=== PATIENT | female | born 1995 | race Caucasian/White ===

== ENCOUNTER 2016-12-27 23:43 | Emergency (ER) | payer OTHER ==
[~2016-12-27] VITALS: Ht 162.6 cm; Wt 56.2 kg
[~2016-12-27 23:43] MED LIST: ACYCLOVIR400 MG PO; AMOXICILLIN500 MG PO; AUGMENTIN875TAB PO; CLARITIN10 M1 PO; DIFLUCAN150 MG PO; FLAGYL500 MG OR; IBUPROFEN400 MG OR; IBUPROFEN600 MG PO; MOTRIN800 MG/TAB PO; NAPROSYN500 MG OR; PREVACID30 M3 PO; PRILOSEC40 MG PO; SPRINTEC 2828 DAY PO; TESSALON PER100 MG PO; TYLENOL # 31 TAB OR; ULTRAM50 M1 PO; VALIUM2 MG OR; ZITHROMAX250 MG PO; tylenol#3 OR
[2016-12-27] MEDS ORDERED: RANITIDINE150 MG PO (23:52)
[2016-12-28] MEDS ORDERED: FLEXERIL PO (01:15)
[2016-12-28] MEDS ORDERED: NAPROSYN500 MG PO (01:15)
[2016-12-28 01:40] VITALS: BP 129/83
== END 2016-12-28 01:45 | disposition home or self-care (01) | DRG 552 ==
LOC: ED 23:43
DX: S16.1XXA Strain of muscle, fascia and tendon at neck level, initial encounter (principal); M54.5 Low back pain; V44.5XXA Car driver injured in collision with heavy transport vehicle or bus in traffic accident, initial encounter; Y92.413 State road as the place of occurrence of the external cause

== ENCOUNTER 2019-03-07 16:39 | Emergency (ER) | payer OTHER ==
[~2019-03-07] VITALS: Ht 162.6 cm; Wt 60.5 kg
[~2019-03-07 16:39] MED LIST changes: +FLEXERIL PO; +NAPROSYN500 MG PO; +RANITIDINE150 MG PO
[2019-03-07] MEDS ORDERED: AMOXICILLIN875 MG PO (17:04)
[2019-03-07 17:10] VITALS: BP 118/77
== END 2019-03-07 17:10 | disposition home or self-care (01) | DRG 153 ==
LOC: ED 16:39
DX: J02.9 Acute pharyngitis, unspecified (principal); F17.210 Nicotine dependence, cigarettes, uncomplicated

== ENCOUNTER 2019-03-30 10:38 | Emergency (ER) | payer OTHER ==
[~2019-03-30] VITALS: Ht 162.6 cm; Wt 60.0 kg
[~2019-03-30 10:38] MED LIST changes: +AMOXICILLIN875 MG PO
[2019-03-30 11:35] LABS: URINE BILIRUBIN - DIPSTICK NEGATIVE (NEGATIVE); URINE BLOOD DIPSTICK NEGATIVE (NEGATIVE); URINE COLOR YELLOW; URINE GLUCOSE - DIPSTICK NEGATIVE (NEGATIVE); URINE KETONE NEGATIVE (NEGATIVE); URINE LEUK ESTERASE NEGATIVE (Negative); URINE NITRITE - DIPSTICK NEGATIVE (Negative); URINE PROTEIN - DIPSTICK NEGATIVE (NEG-TRACE); URINE SPECIFIC GRAVITY <=1.005; URINE UROBILINOGEN - DIPSTICK 0.2 E.U./dL (0.2)
[2019-03-30 11:37] LABS: HEMOGLOBIN 13.9 g/dl (12.0-16.0); IMMATURE GRANULOCYTES 0.5 % (0.0-5.0); MEAN CELL VOLUME 91.7 fL CALC (80.0-100.0); MEAN CORPUSCULAR HGB 31.1 pG CALC (26.0-32.0); MEAN CORPUSCULAR HGB CONC 33.9 g/L CALC (32.0-36.0); NEUT# 2.93 thou/uL (2.00-7.15); RED BLOOD COUNT 4.47 mill/uL (4.20-5.60); URINE CLARITY CLEAR
[2019-03-30 11:42] LABS: BARBITURATES NEGATIVE (NEGATIVE); COCAINE NEGATIVE (NEGATIVE); METHADONE NEGATIVE (NEGATIVE); OXCYCODONE NEGATIVE (NEGATIVE); TETRAHYDROCANNABIONOL NEGATIVE (NEGATIVE); TRICYLIC ANTIDEPRESSANTS NEGATIVE (NEGATIVE)
[2019-03-30 11:55] LABS: ALBUMIN 4.9 g/dL (3.2-5.0); ALKALINE PHOSPHATASE 57 u/l (38-126); ANION GAP 15 (6-22 (CALC)); BILIRUBIN, TOTAL 0.4 mg/dL (0.0-1.4); BUN 9 mg/dL (7-17); BUN/CREATININE RATIO 15 (12-20 (CALC)); CARBON DIOXIDE 23 mmol/l (22-30); CHLORIDE 109 mmol/l (95-108); CREATININE 0.6 mg/dL (0.5-1.0); GFR > 60 ML/MIN (>=60 (CALC)); GFR FOR AFR.AMER. > 60 ML/MIN (>=60 (CALC)); LIPASE 195 u/l (23-300); POTASSIUM 3.9 mmol/l (3.5-5.1); SGOT/AST 30 u/l (14-36); SODIUM 143 mmol/l (137-146); TOTAL PROTEIN 8.6 g/dL (6.3-8.2)
[2019-03-30 12:18] VITALS: BP 118/71
[2019-03-30] MEDS ORDERED: XANAX0.25 MG PO (12:35)
[2019-03-30] MEDS ORDERED: PROTONIX40 MG PO (12:35)
== END 2019-03-30 13:10 | disposition home or self-care (01) | DRG 313 ==
LOC: ED 10:38
PROVIDERS: Emergency Medicine
DX: R07.89 Other chest pain (principal); R06.02 Shortness of breath; R00.2 Palpitations; F41.9 Anxiety disorder, unspecified; F17.200 Nicotine dependence, unspecified, uncomplicated; R42 Dizziness and giddiness

== ENCOUNTER 2021-04-25 19:21 | Emergency (ER) | payer MEDICAID ==
[~2021-04-25 19:21] MED LIST changes: +PROTONIX40 MG PO; +XANAX0.25 MG PO
== END 2021-04-25 20:35 | disposition left against medical advice (07) ==
LOC: ED 19:21 → LWOBS 20:35
DX: Z91.19 Patient's noncompliance with other medical treatment and regimen (principal)

== ENCOUNTER 2023-06-18 15:32 | Emergency (ER) | payer OTHER, MEDICAID ==
[~2023-06-18] VITALS: Ht 162.6 cm; Wt 688.0 kg
[2023-06-18] VITALS (12 sets, daily range): BP systolic 119–138; BP diastolic 69–88
[2023-06-18] MEDS ORDERED: MEDDOSEPAK PO ×2 (18:00→18:14)
[2023-06-18] MEDS ORDERED: NAPROXEN500 MG PO ×2 (18:00→18:14)
== END 2023-06-18 18:15 | disposition home or self-care (01) | DRG 556 ==
LOC: ED 15:32
DX: M25.572 Pain in left ankle and joints of left foot (principal); F17.200 Nicotine dependence, unspecified, uncomplicated